=== PATIENT | female | born 1990 | race Caucasian/White ===

== ENCOUNTER → 2022-07-04 11:06 | Outpatient (CLI) | payer OTHER, SELFPAY ==
--- NOTE | ~2022-07-04 | MR_ITS ---
MRI of the brain Clinical History: Headache Technique: Axial and sagittal T1-weighted images were acquired. These were followed by axial T2-weigh kacie, diffusion weighted, gradient, and FLAIR images. Following intravenous administration of 20 cc Mu ltiHance gadolinium, T1-weighted fat-sat imaging was performed in the axial and coronal planes. Findings: No abnormal signal seen in the brain parenchyma. No acute infarct, intracranial hemorrhage, or mass lesion. Ventricles and subarachnoid spaces are unremarkable. Orbits are unremarkable. Paranasal sinuses and m astoid air cells are clear. Major intracranial flow voids are intact. Sagittal midline structures are intact. No abnormal postcontrast enhancement identified. IMPRESSION: Unremarkable exam. Reviewed, dictated and finalized at location M. LRY FACER IMPRESSION: Unremarkable exam.
== END ==
PROVIDERS: PCP Physician Assistant; Visit Provider Physician Assistant
DX: R51.9 Headache, unspecified (principal)
CPT/HCPCS: 70553; A9577

== ENCOUNTER 2023-10-16 08:41 | Outpatient (CLI) | payer BC, SELFPAY ==
--- NOTE | ~2023-10-16 | US_ITS ---
EXAMINATION: US pelvic complete w TV DATE: 10/16/2023 09:08 INDICATION: Pelvic pain. Evaluate for polycystic ovary Comparison:Ultrasound dated 08/26/2015 TECHNIQUE: Multiple transabdominal and endovaginal sonographic images of the pelvis performed. FINDINGS: The uterus measures 7.4 x 4 x 3.9 cm. There is an IUD present in the endometrium. The endom etrial complex measures 4 mm. Calcifications are noted at the lower uterine segment. The right ovary is not visualized. Left ovary measures 3.1 x 3.1 x 2.9 cm and contains a 2.5 cm minim ally complicated cyst with low level internal echoes. There is no free fluid in the pelvis. There are no abnormal masses seen on either side. IMPRESSION: 1. Mildly complicated left ovarian cyst measuring 2.5 cm. Reviewed, dictated and finalized at location B.
== END 2023-10-16 08:42 ==
LOC: GOSHIMG 08:42
PROVIDERS: PCP Clinical Nurse Specialist; Visit Provider Student in an Organized Health Care Education/Training Program
DX: R10.2 Pelvic and perineal pain (principal); N83.202 Unspecified ovarian cyst, left side
CPT/HCPCS: 76830; 76856

== ENCOUNTER 2023-10-16 09:10 | Outpatient (CLI) | payer BC, SELFPAY ==
[2023-10-19 14:38] LABS: Testosterone Total 25 ng/dL (2-45)
[2023-10-20 08:43] LABS: DHEA-Sulfate 127 mcg/dL (19-237)
[2023-10-23 16:42] LABS: Free Insulin 14.5 uIU/mL (1.5-14.9)
== END 2023-10-16 09:11 | disposition home or self-care (01) ==
LOC: ANHGOSHLAB 09:12
PROVIDERS: PCP Clinical Nurse Specialist; Visit Provider Student in an Organized Health Care Education/Training Program
DX: N91.2 Amenorrhea, unspecified (principal)
CPT/HCPCS: 36415; 82627; 83525; 83527; 84403

== ENCOUNTER 2024-05-20 10:19 | Emergency (ER) | payer BC, SELFPAY ==
--- NOTE | 2024-05-20 10:28 | ED_ITS ---
HPI - General Adult General Chief complaint: Urogenital-Female Stated complaint: UTI Time Seen by Provider: 05/20/24 10:28 Source: patient, RN notes reviewed and old records reviewed Mode of arrival: ambulatory Limitations: no limitations History of Present Illness HPI narrative: 28-year-old female to Express Care for complaint burning with urination, urinary urgency, postvoid leaking, foul smelling urine for 4 days. patient reports history urinary tract infections. States last one was approximately months ago. Patient denies flank pain, back pain, abdominal pain changes, fever, nausea, allergies. Patient able tolerate fluids by mouth. Patient resting comfortably in exam room in no acute distress. Related Data Home Medications Medication Instructions Recorded Confirmed lisinopril 2.5 mg tablet 2.5 mg PO DAILY 10/09/22 05/20/24 mirabegron 25 mg tablet,extended 25 mg PO DAILY 03/08/24 05/20/24 release 24 hr Allergies Allergy/AdvReac Type Severity Reaction Status Date / Time No Known Allergies Allergy Verified 05/20/24 10:29 Review of Systems Review of Systems: All systems reviewed & are unremarkable except as noted in HPI and below Constitutional: Constitutional: Reports no additional constitutional complaints Eyes: Eyes: Reports no additional eye complaints ENT: Reports system reviewed and no additional complaints, except as documented Cardiovascular: Cardiovascular: Reports no additional cardiovascular complai nts, Denies chest pain and Denies dyspnea Respiratory: Respiratory: Reports no additional respiratory complaints, Denies cough and Denies dyspnea Genitourinary: Genitourinary: Reports as per HPI, Reports post void dribbling, Reports nocturia, Reports dysuria, Denies flank pain, Reports urinary hesitancy and Reports urinary urgency Musculoskeletal: Musculoskeletal: Reports no additional musculoskeletal complaints Neurologic: Reports system reviewed and no additional complaints, except as documented Psychiatric: Psychiatric: Reports no additional psychiatric complaints [facility] Past Medical History Medical History Anemia DVT (deep venous thrombosis) HPV (human papilloma virus) infection Pulmonary embolism Surgical History Surgical History H/O gastric bypass H/O gynecological procedure H/O gynecological procedure Mirena IUD insertion 09/2011 removal/reinsertion 2017 History of delivery 2009 History of cryosurgery Hx of tonsillectomy Family History Family History Father Hypertension Diabetes mellitus Bladder cancer Grandparent Atrial fibrillation Diabetes mellitus Breast cancer Mother Asthma Depression Anxiety Thyroid disorder Sibling Anxiety Depression Heart problem Grandparent Anxiety Depression Thyroid disorder Alcoholism in family Social History Social History Social History: Caffeine- coffee and cola 4 cups daily Smoking status: Never smoker Tobacco type: e-cigarettes/vaping Alcohol intake: former Substance use: current Substance use type: marijuana Do You Feel Safe in your Home?: Yes Lack of Transportation: No Lack of Food: Never True Current Housing: I Have Housing Concerned About Future Housing: No Difficulty Paying Gas/Electric Bills: No Difficulty Paying for Meds: No Currently Unemployed: No Education: Master's Degree or Higher Difficulty w/ Childcare or Family Care: No Living arrangements: with family Occupation/Education: occupation 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 There is no relevant family history pertinent to the patient complaint. Exam Const: General: cooperative, comfortable, no acute distress, alert and well nourished Nutritional Appearance: well nourished Orientation/consciousness: patient oriented x3 Limitations: no limitations HENMT: Head: normal to inspection Ears: external ears normal Face/Nose/Sinus: Normal external nose present, Normal nares present, normal facial exam, No erythema and No edema Face and sinus: normal facial exam, no erythema and no edema Mouth: Yes Normal oral and palatal mucosa present Eyes: General: appearance normal, both eyes and all related structures Neck: Neck: normal visual inspection, full ROM and no meningeal signs Chest: Chest palpation & inspection: normal inspection of the chest Resp: Effort & Inspection: normal respiratory effort and able to speak in complete sentences Cardio: Jugular venous distension: no JVD Rate: bradycardic Rhythm: regular rhythm : General: Yes no CVA tenderness Back/Spine/Pelvis: Cervical Spine: cervical ROM normal Skin: General skin exam: normal color, no rashes or lesions noted and turgor normal Neuro: General: patient oriented x3, gait normal, moves all extremities and no meningeal signs Speech: normal speech Gait exam (Neuro): Normal gait present Extrem: General: normal to inspection, full ROM and capillary refill normal Psych: Appearance: grossly normal and well kempt Course Course Emergency Course: Some parts of this dictation were generated by voice recognition software and may contain typographical and/or grammatical inaccuracies. Level of Care: Express Care Visit Vital Signs Vital signs: Vital Signs Temperature 36.2 C L 05/20/24 10:29 Pulse Rate 58 L 05/20/24 10:29 Respiratory Rate 16 05/20/24 10:29 Blood Pressure 138/85 05/20/24 10:29 Pulse Oximetry 99 05/20/24 10:29 Temperature 36.2 C L 05/20/24 10:31 Pulse Rate 58 L 05/20/24 10:31 Respiratory Rate 16 05/20/24 10:31 Blood Pressure 138/85 05/20/24 10:31 Pulse Oximetry 99 05/20/24 10:31 reviewed Medical Decision Making MDM Narrative Medical decision making narrative: 28-year-old female to Express Care for complaint burning with urination, urinary urgency, postvoid leaking, foul smelling urine for 4 days. patient reports history urinary tract infections. States last one was approximately months ago. Patient denies flank pain, back pain, abdominal pain changes, fever, nausea, allergies. Patient able tolerate fluids by mouth. Patient resting comfortably in exam room in no acute distress. Patient is sitting comfortably in exam room nontoxic in appearance. patient exam unremarkable. UA positive for UTI clinic. Culture sent. Patient appropriate for outpatient treatment and follow-up. Discharge instructions reviewed with patient, as well as provided in writing per nursing staff. The instructions also include specific and strict return/GO TO THE ER as well as f/u information. All questions have been answered, and the patient deny any further questions with discharge and discharge plan. Some parts of this dictation were generated by voice recognition software and may contain typographical and/or grammatical inaccuracies. Differential Diagnosis Differential Diagnosis: Urinary tract infection, sexually transmitted infection, acute cystitis Vital Signs Vital Signs: Vital Signs Temperature 36.2 C L 05/20/24 10:29 Pulse Rate 58 L 05/20/24 10:29 Respiratory Rate 16 05/20/24 10:29 Blood Pressure 138/85 05/20/24 10:29 Pulse Oximetry 99 05/20/24 10:29 Temperature 36.2 C L 05/20/24 10:31 Pulse Rate 58 L 05/20/24 10:31 Respiratory Rate 16 05/20/24 10:31 Blood Pressure 138/85 05/20/24 10:31 Pulse Oximetry 99 05/20/24 10:31 Lab Data Labs: Lab Results 05/20/24 Range/Units 10:34 POC Urine Color Yellow POC Urine Clarity Cloudy POC Urine pH 6.0 POC Ur Specif Nixa 1.005 POC Urine Protein Negative (Negative) POC Ur Glucose (UA) Negative (Negative) POC Urine Ketones Negative (Negative) POC Urine Blood Negative (Negative) POC Urine Nitrite Negative (Negative) POC Urine Bilirubin Negative (Negative) POC Urine Urobilinogen 0.2 POC U Leukocyte Esteras 2+ (Negative) Discharge Plan Discharge Clinical Impression: Urinary tract infection Patient Disposition: Home, Self-Care Condition: Stable Instructions: Urinary Tract Infection in Women (ED) Additional Instructions: We will send a urine culture off to the lab; if the culture identifies an organism that the prescribed antibiotic will not treat, you will receive a phone call from an urgent care staff member and an appropriate antibiotic will be prescribed. -Your symptoms should begin to improve within a day of starting antibiotics. But you should finish all the antibiotic pills you get. Otherwise your infection might come back. -Also recommend: drink more fluid. It might help flush out germs, and it does no harm -Tylenol/ibuprofen as needed for pain -Follow-up with your primary care provider for urine recheck OR if your symptoms persist, change or worsen significantly before you can contact your personal physician then please, without delay, go to the emergency department for further evaluation. Prescriptions: New cephalexin 500 mg capsule 500 mg PO Q12H Qty: 14 0RF No Action lisinopril 2.5 mg tablet 2.5 mg PO DAILY mirabegron 25 mg tablet extended release 24 hr 25 mg PO DAILY ergocalciferol (vitamin D2) 1,250 mcg (50,000 unit) capsule 1,250 mcg PO WEEKLY Qty: 8 0RF ferrous sulfate 325 mg (65 mg iron) tablet 325 mg PO DAILY Qty: 90 0RF Rybelsus 14 mg tablet 14 mg PO DAILY Qty: 90 1RF Follow-up/Referrals: Madalyn Wilcox, MERCHANDISE CLERK-C [Primary Care Provider] -
[2024-05-20 10:29] VITALS: BP 138/85; PULSE 58; RESP 16; TEMP 36.2; O2SAT 99
[2024-05-20 10:31] VITALS: BP 138/85; PULSE 58; RESP 16; TEMP 36.2; O2SAT 99
[2024-05-20 10:36] LABS: EDUAAPPEAR Cloudy; EDUABILI Negative (Negative); EDUABLOOD Negative (Negative); EDUACOLOR1 Yellow; EDUAGLUCOSE Negative (Negative); EDUAKETONE Negative (Negative); EDUALEUKO 2+ (Negative); EDUANITRATE Negative (Negative); EDUAPROTEIN Negative (Negative); EDUASPGRAVITY 1.005; EDUAUROBILI 0.2
== END 2024-05-20 10:54 | disposition home or self-care (01) ==
PROVIDERS: Emergency Provider Nurse Practitioner Family; PCP Clinical Nurse Specialist
DX: N39.0 Urinary tract infection, site not specified (principal); F17.290 Nicotine dependence, other tobacco product, uncomplicated; Z86.718 Personal history of other venous thrombosis and embolism; Z86.711 Personal history of pulmonary embolism; Z98.84 Bariatric surgery status
CPT/HCPCS: 81003; 87077; 87086; 87186; 99213; G0463

== ENCOUNTER 2024-10-10 13:42 | Emergency (ER) | payer OTHER, SELFPAY ==
[2024-10-10 13:51] VITALS: BP 109/69; PULSE 60; RESP 16; TEMP 36.3; O2SAT 100
--- NOTE | 2024-10-10 13:59 | ED_ITS ---
HPI - Female Genitourinary General Chief complaint: Urogenital-Female Stated complaint: Uti Symptoms Time Seen by Provider: 10/10/24 13:59 Source: patient Mode of arrival: ambulatory Limitations: no limitations History of Present Illness HPI Narrative: Patient presents to the clinic with complaint of abdomen pain, burning with urination, frequency, and urgency x 5 days. She states that she has a recurrent history of UTIs. Her last one was in August. She has not been taking anything [id number]. Related Data Home Medications ?Medication ?Instructions ?Recorded ?Confirmed ?Last Taken ?Type mirabegron 25 mg tablet,extended 25 mg PO DAILY 03/08/24 10/10/24 Unknown History release 24 hr iron 10/10/24 Unknown History iud 10/10/24 Unknown History Allergies Allergy/AdvReac Type Severity Reaction Status Date / Time No Known Allergies Allergy Verified 10/10/24 14:14 Review of Systems Review of Systems: CONSTITUTIONAL: Denies body aches, fever, chills, or sweats. CARDIOVASCULAR: Denies chest pain, palpitations, or edema. RESPIRATORY: Denies cough or dyspnea. GASTROINTESTINAL: Denies abdominal pain, nausea, vomiting, or diarrhea. GENITOURINARY: Reports dysuria, frequency, and urgency. Denies hematuria, flank pain, and discharge. SKIN: Denies rash, itching, or wounds. MUSCULOSKELETAL: Denies back pain or myalgia. All systems reviewed & are unremarkable except as noted in HPI and below PMFSH Past Medical History Medical History Encounter to establish care HPV (human papilloma virus) infection Pulmonary embolism DVT (deep venous thrombosis) Anemia Surgical History Surgical History Hx of tonsillectomy History of cryosurgery H/O gynecological procedure Mirena IUD insertion 09/2011 removal/reinsertion 2016 H/O gynecological procedure H/O gastric bypass History of delivery 2008 Family History Family History Father Hypertension Diabetes mellitus Bladder cancer Grandparent Atrial fibrillation Diabetes mellitus Breast cancer Mother Asthma Depression Anxiety Thyroid disorder Sibling Anxiety Depression Heart problem Grandparent Anxiety Depression Thyroid disorder Alcoholism in family Social History Social History Social History: Caffeine- coffee and cola 4 cups daily Smoking status: Never smoker Tobacco type: e-cigarettes/vaping Alcohol intake: former Substance use: current Substance use type: marijuana Do You Feel Safe in your Home?: Yes Lack of Transportation: No Lack of Food: Never True Current Housing: I Have Housing Concerned About Future Housing: No Difficulty Paying Gas/Electric Bills: No Difficulty Paying for Meds: No Currently Unemployed: No Education: Master's Degree or Higher Difficulty w/ Childcare or Family Care: No Living arrangements: with family Occupation/Education: occupation 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 Please see nursing chart for further information. There is no relevant family history pertinent to the presenting complaint. Exam Narrative: GENERAL: Well-appearing and in no acute distress. NECK: Normal AROM. ?Supple. ? CHEST: ?No respiratory distress. Clear to auscultation. HEART: Regular rate and rhythm. ABDOMEN: Soft, nontender, nondistended, normal active bowel sounds. ?No CVA tenderness. SKIN: Warm, dry, no rash. NEURO: No focal deficits. Alert and oriented x3. Gait steady. PSYCH: ?Normal affect. ? Course Course Level of Care: Express Care Visit Vital Signs Vital signs: Vital Signs Temperature 97.4 F L 10/10/24 13:51 Pulse Rate 60 10/10/24 13:51 Respiratory Rate 16 10/10/24 13:51 Blood Pressure 109/69 10/10/24 13:51 Pulse Oximetry 100 10/10/24 13:51 Temperature 97.4 F L 10/10/24 13:51 Pulse Rate 60 10/10/24 13:51 Respiratory Rate 16 10/10/24 13:51 Blood Pressure 109/69 10/10/24 13:51 Pulse Oximetry 100 10/10/24 13:51 MDM - Female Genitourinary MDM Narrative Medical decision making narrative: Discussed physical exam findings. Antibiotic prescribed for UTI. Discussed with patient the importance of following up with her urologist. Advised supportive measures and signs/symptoms to go to the ER. Pt is appropriate for outpatient treatment and follow up. Differential Diagnosis Differential diagnosis: Likely urinary tract infection, bacterial vaginosis and vaginitis Critical Care Time Critical Care Time Critical Care Time: No Discharge Plan Discharge Clinical Impression: UTI (urinary tract infection) Qualifiers: Urinary tract infection type: acute cystitis Hematuria presence: without hematuria Qualified Code(s): N30.00 - Acute cystitis without hematuria Patient Disposition: Home Condition: Stable Instructions: Antibiotic Form, Urinary Tract Infection in Women (DC) Additional Instructions: Take the antibiotic as prescribed The urine will be sent of for a culture to identify what type of bacteria is causing your infection. If the culture shows that the antibiotic will not get rid of your infection, you will be notified and a new antibiotic will be called in for you. Increase water intake. Keep your urology appointment next week. Go to the ER for any worsening symptoms or concerns Patient Language: Singaporean Prescriptions: New cephalexin 500 mg capsule 500 mg PO Q12H 7 Days Qty: 14 0RF No Action iron iud mirabegron 25 mg tablet extended release 24 hr 25 mg PO DAILY lisinopril 2.5 mg tablet 2.5 mg PO DAILY Qty: 90 0RF ferrous sulfate 325 mg (65 mg iron) tablet 325 mg PO BID Qty: 180 0RF cyanocobalamin (vitamin B-12) 500 mcg/spray spray,non-aerosol 500 mcg intranasal WEEKLY Qty: 4 3RF rosuvastatin 5 mg tablet See Rx Instructions .ROUTE .COMPLEX Qty: 90 1RF Dose Instruction: TAKE 1 TABLET BY MOUTH EVERY DAY Rx Instructions: TAKE 1 TABLET BY MOUTH EVERY DAY Mounjaro 10 mg/0.5 mL pen injector 10 mg subcut WEEKLY Qty: 2 0RF Follow-up/Referrals: PHYSICIAN,INSTRUMENT ENGINEER [Primary Care Provider] - Time of Disposition: 14:17
[2024-10-10 14:31] LABS: EDUAAPPEAR Clear; EDUABILI Negative (Negative); EDUABLOOD Negative (Negative); EDUACOLOR1 Yellow; EDUAGLUCOSE Negative (Negative); EDUAKETONE Negative (Negative); EDUALEUKO Trace (Negative); EDUANITRATE Negative (Negative); EDUAPROTEIN Negative (Negative); EDUAUROBILI 0.2
== END 2024-10-10 14:22 | disposition home or self-care (01) ==
DX: N30.00 Acute cystitis without hematuria (principal); F17.290 Nicotine dependence, other tobacco product, uncomplicated; F12.90 Cannabis use, unspecified, uncomplicated; D64.9 Anemia, unspecified; Z86.718 Personal history of other venous thrombosis and embolism; Z86.711 Personal history of pulmonary embolism; Z98.84 Bariatric surgery status
CPT/HCPCS: 81003; 87086; 99213; G0463

== ENCOUNTER 2024-10-29 10:28 | Outpatient (CLI) | payer OTHER, SELFPAY ==
--- NOTE | ~2024-10-29 | XR_ITS ---
AP and lateral views of the right hip Clinical history: Pain Findings: No acute fracture or dislocation is seen. Osseous alignment is anatomic. Right hip joint is unremarkable. Soft tissues are unremarkable. Impression: No significant abnormality is seen. Reviewed, dictated and finalized at location M. Impression: No significant abnormality is seen.
== END 2024-10-29 10:29 | disposition home or self-care (01) ==
PROVIDERS: PCP Clinical Nurse Specialist; Visit Provider Clinical Nurse Specialist
DX: M25.551 Pain in right hip (principal)
CPT/HCPCS: 73502